=== PATIENT | male | born 1975 | race Caucasian/White ===

== ENCOUNTER → 2016-12-27 | Day surgery (SDC) | payer BC ==
[~2016-12-27] MED LIST: ACETAMINOPHEN 1000 MG/100 ML VIAL IV ONE; ACETAMINOPHEN/HYDROcodone 325 MG/5 MG TAB ONE; ALLE24TA; BUPIVACAINE/EPINEPHRINE 0.5% PF 30 ML VIAL ONE; KETOROLAC TROMETHAMINE 30 MG/ML (IVP) VIAL IV PUSH ONE; LACTATED RINGER'S 1000 ML INJ 1,000 ML ONE; MIDAZOLAM HCL 2 MG/2 ML VIAL ONE; ONDANSETRON HCL 4 MG/2 ML VIAL IV PUSH ONE; PROMETHAZINE INJ 25 MG/ML VIAL ONE; PROPOFOL 200 MG/20 ML AMP IV ONE; ceFAZolin INJ 1,000 MG VIAL ONE; metroNIDAZOLE 500 MG INJ 100 ML IV ONE
--- NOTE | 2016-12-27 14:45 | TN ---
cc: RAIZA BARBA M.D. DATE OF SURGERY: 12/27/2016 PREOPERATIVE DIAGNOSIS Abdominal pain right upper quadrant with findings suggestive of biliary colic, umbilical hernia. POSTOPERATIVE DIAGNOSIS Abdominal pain right upper quadrant with findings suggestive of biliary colic, umbilical hernia. PROCEDURE 1. Laparoscopic cholecystectomy. 2. Umbilical hernia repair. ANESTHESIA General. SURGEON Dr. Barba. INDICATION This is a pleasant 41-year-old gentleman who had some persistent right upper quadrant pain, nausea, bloatedness. He has had a fairly extensive workup by scale technician who suggests that he may benefit from a cholecystectomy. Plans were made for above. He is known to have umbilical hernia as well. PROCEDURE The patient was taken to the operating room and placed in the supine position. After anesthesia his abdomen was prepped with Betadine. We make an incision in a vertical fashion over the umbilicus where this 1 cm umbilical hernia is located, it is reduced. The abdomen was entered. The trocar was introduced. Camera was introduced. Two other working ports were placed 5 mm below the xyphoid, 5 mm in between two previously placed ports. The gallbladder is grasped superiorly and laterally identifying the cystic duct. He has almost nonexistent cystic artery. The cystic duct is doubly ligated, transected. The gallbladder was then teased off the gallbladder bed, placed in EndoCatch and pulled out through the umbilical incision. It is noted he had a little bit of scar tissue down the neck of the gallbladder and the cystic duct but again no cystic artery of significance was seen. There is excellent hemostasis without biliary leakage. Liver is smooth. There is no scar tissue, there is no adhesions along the right or left lobe of the liver along the stomach. No adhesions ascending, transverse, descending colon, I do not see any abnormality, does not have inguinal hernias. His appendix is visualized as normal as well. No other gross abnormalities seen. We then remove the three trocars. The umbilical hernia is then ready for repair by dissecting circumferentially around to normal-appearing fascia and it is reapproximated in a horizontal fashion with a 0 Vicryl suture. The skin is then closed with 4-0 Vicryl. Steri-Strips were applied. The other two 5 mm ports were closed with 4-0 Vicryl at the skin level as well. The patient tolerated the procedure well and had no immediate postop complications. MD YODIT Davenport/TLL /2:05 PM /2:18 PM
== END | disposition home or self-care (01) ==
LOC: ESDC 10:21
PROVIDERS: ATTEND Surgery
DX: R10.11 Right upper quadrant pain (principal); R11.0 Nausea; R14.0 Abdominal distension (gaseous); K42.9 Umbilical hernia without obstruction or gangrene
CPT/HCPCS: 00750; 00790; 47562; 49585; 88304; J0131; J0690; J1885; J2250; J2405; J2550; J3010; J7120